=== PATIENT | female | born 1995 | race Caucasian/White ===

== ENCOUNTER 2023-09-30 12:08 | Emergency (ER) | payer OTHER ==
[2023-09-30 12:14] VITALS: BP 134/85; PULSE 74; RESP 18; TEMP 97.8; BMI 28.3
[2023-09-30] MEDS ORDERED: METOCLOPRAMIDE HCL INJECTION 10 MG/2 ML VIAL ONE (13:42)
[2023-09-30] MEDS: METOCLOPRAMIDE HCL INJECTION 10 MG/2 ML VIAL IVPUSH ONE (13:53)
[2023-09-30 13:58] LABS: BASO % 0.6 % (0-2.0); EOS % 0.8 % (0-4.5); HEMATOCRIT 38.4 % (32.4-45.2); HEMOGLOBIN 13.1 GM/dL (10.7-15.3); LYMPH % 23.5 % (8-40); MCH 29.7 pg (25.7-33.7); MCHC 34.2 g/dl (32.0-36.0); MEAN CELL VOLUME 86.8 fl (80-96); NEUT % 69.1 % (42.8-82.8); PLATELET COUNT 177 10^3/uL (134-434); RBC 4.42 M/mm3 (3.60-5.2); RDW 13.3 % (11.6-15.6); WHITE BLOOD COUNT 6.4 K/mm3 (4.0-10.0)
[2023-09-30 14:05] LABS: INR 0.97 (0.83-1.09)
[2023-09-30 14:07] LABS: ACTIVATED PTT 32.8 SECONDS (25.2-36.5)
[2023-09-30 14:21] LABS: CALCIUM 8.9 mg/dL (8.5-10.1)
[2023-09-30 14:22] LABS: ALBUMIN 4.1 g/dl (3.4-5.0); BLOOD UREA NITROGEN 10.8 mg/dL (7-18)
[2023-09-30 14:25] LABS: CREATININE 0.6 mg/dL (0.55-1.3)
[2023-09-30 14:27] LABS: BILIRUBIN,TOTAL 0.3 mg/dL (0.2-1); TOT PROT 7.1 g/dl (6.4-8.2)
== END 2023-09-30 15:31 | disposition home or self-care (01) ==
LOC: JER 12:08
PROC: 3E033GC Introduction of Other Therapeutic Substance into Peripheral Vein, Percutaneous Approach (ICD-10-PCS; principal; 2023-09-30)
DX: G43.909 Migraine, unspecified, not intractable, without status migrainosus (principal); H53.8 Other visual disturbances; R11.0 Nausea
CPT/HCPCS: 36415; 70450-TC; 80053; 83735; 84703; 85025; 85610; 85730; 99284-25